=== PATIENT | female | born 1980 | race Caucasian/White ===

== ENCOUNTER → 2016-04-03 | Outpatient (CLI) | payer OTHER | LOC: LAB 16:32 | PROVIDERS: ATTEND Family Medicine | DX: O20.0 Threatened abortion (principal) | CPT/HCPCS: 36415; 84702 ==

== ENCOUNTER → 2016-04-05 | Outpatient (CLI) | payer OTHER | LOC: LAB 16:23 | PROVIDERS: ATTEND Family Medicine | DX: O26.851 Spotting complicating pregnancy, first trimester (principal); Z32.01 Encounter for pregnancy test, result positive | CPT/HCPCS: 36415; 84702 ==

== ENCOUNTER → 2016-04-10 | Outpatient (CLI) | payer OTHER ==
--- NOTE | 2016-04-10 21:45 | DI ---
OBSTETRICAL ULTRASOUND, 04/10/2016 3:46 PM: Clinical History: Verify dates. Previous Exam: None at this facility for this . LMP: 02/18/2016. There is a single live IUP currently in unstable position. Amnionic fluid content is normal. The plac enta is indeterminant location. heart rate is 160 beats/minute and regular. The yolk sac is vis ualized and both ovaries are normal. CRL measurement is 14 mm. This measurement corresponds to an EGA value of 7 weeks 5 days. The US EDC is 11/22/2016. EDC by LMP is 11/24/2016. Readin. Single live fetus with unstable presentation and normal amniotic fluid content. 2. The composite EGA is 7 weeks 5 days with an ultrasound EDC of 11/22/2016.
== END ==
LOC: US 15:44
PROVIDERS: ATTEND Family Medicine
DX: Z36 Encounter for antenatal screening of mother (principal)
CPT/HCPCS: 76801

== ENCOUNTER → 2016-04-17 | Outpatient (CLI) | payer OTHER ==
[2016-04-17 15:10] LABS: BASOPHILS # (AUTO) 0.01 10*3/UL; BASOPHILS % (AUTO) 0.2 % (0-1); EOSINOPHILS % (AUTO) 1.6 % (0-8); HEMATOCRIT 41.2 % (37.0-47.0); HEMOGLOBIN 14.1 g/dL (12.0-16.0); IMM GRAN % (AUTO) 0.2 % (0-5); IMM GRAN# (AUTO) 0.01 10*3/UL; LYMPHOCYTES # (AUTO) 1.39 10*3/uL; LYMPHOCYTES % (AUTO) 25.4 % (10-50); MEAN CORPUSCULAR HEMOGLOBIN 27.9 PG (27-31); MEAN CORPUSCULAR HGB CONC 34.2 g/dL (33-37); MEAN PLATELET VOLUME 8.5 FL (7.4-12.2); MONOCYTES # (AUTO) 0.53 10*3/UL (0.3-0.8); MONOCYTES % (AUTO) 9.7 % (5-15); NEUTROPHILS # (AUTO) 3.44 10*3/UL; NEUTROPHILS % (AUTO) 62.9 % (50-80); RDW COEFFICIENT OF VARIATION 13.4 % (11.5-14.5); RED BLOOD COUNT 5.06 10^6/uL (4.20-5.40); WHITE BLOOD COUNT 5.47 10^3/uL (4.8-10.8)
[2016-04-17 15:11] LABS: PLATELET MORPHOLOGY COMMENT NORMAL MORPHOLOGY (NORM)
[2016-04-17 15:12] LABS: PRENATAL QUESTION YES (Y)
[2016-04-17 15:44] LABS: HIV ANTIBODY NEGATIVE (N); HIV-1 P24 ANTIGEN NEGATIVE (N)
[2016-04-19 11:28] LABS: RUBELLA IGG INDEX 2.2 (()); SYPHILIS IGG WITH REFLEX Negative (Negative)
[2016-04-19 11:29] LABS: HEP B SURFACE AG Negative (Negative)
== END ==
LOC: MOB LAB 13:21
PROVIDERS: ATTEND Family Medicine
DX: Z36 Encounter for antenatal screening of mother (principal); Z3A.08 8 weeks gestation of pregnancy
CPT/HCPCS: 36415; 80081; 86900; 86901; 87088

== ENCOUNTER 2016-05-01 11:02 | Emergency (ER) | payer OTHER ==
[2016-05-01 11:29] VITALS: RESP 14; TEMP 97.6
--- NOTE | 2016-05-01 14:02 | DI ---
US OB LESS THAN 14 WEEKS,05/01/2016 12:27 PM: Clinical History: Vaginal spotting and low hCG. Previous Exam: April 10, 2016 Findings: Transabdominal grayscale and color Doppler sonographic images are obtained through the pelvis demonst rating a single pole within the uterus measuring a crown-rump length of 21 mm corresponding wit h an estimated gestational age of 8 weeks 6 days. (December 05, 2016. On the prior exam, the ed date of delivery was November 22, 2016 The urinary bladder is unremarkable. There is no detectable Doppler heart tones. Impression: 1. No detectable Doppler heart tones, and estimated gestational age measuring approximately 2 weeks l ess than the estimated gestational age by last menstrual period. This is most consistent with d emise.
--- NOTE | 2016-05-01 15:48 | PDOC ---
Female Problem HPI - General Chief Complaint: Vag Complaint/Bleed, <20WK IUP Stated Complaint: SPOTTING IN PREGANCY Date Seen by Provider: 05/01/16 Time Seen by Provider: 11:15 Source: POSITIVE: Patient, Old records Exam Limitations: POSITIVE: No limitations Nurse's Notes Reviewed & Considered: Yes - History of Present Illness Initial Comments: The patient is a 35-year-old female. She states she is 10 weeks , approximately. She is 1 para 0 aborta 0. She states that yesterday afternoon she developed a "brownish" vaginal discharge and has since developed some "bright red spotting". She states she had a similar episode when she was approximately 6 weeks . Mild cramping. She had an ultrasound done on 04/10/2016 which showed a heart rate of 160 bpm and her estimated gestational age was 7 weeks 5 days, for an EDC of 11/22/2016. Quantitative beta hCG on 04/03/2016 was 24,172. Quantitative hCG on 04/05/2016 was 26,130. Patient's blood type is B+. Patient has no abdominal pain. Body Location Affected: REPORTS: Genitalia (Vaginal spotting; approximately 10 weeks ) Timing: REPORTS: Abrupt Duration: <24 hours Severity: Mild Quality: REPORTS: Cramping Context: REPORTS: Known Location of Pain: REPORTS: Pelvic Cramping Vaginal Bleeding: REPORTS: Abnormal Bleeding, Spotting : 1 Para: 0 Abortions (Spontaneous/Intentional): 0 : REPORTS: , Ultrasound Sexual History: REPORTS: Active Urinary Symptoms: DENIES: Blood in Urine, Frequent Urination, Discomfort w/ Urination, Burning w/ Urination, Urinary Urgency, Painful Urination, Other Discharge: REPORTS: Other (Bloody vaginal spotting) Similar Symptoms Previously: Yes (at approximately 6 weeks gestation) Recent Care Received: REPORTS: Recently Seen, Treated by MD (As above) Any Prior Injuries Related to Current Complaint?: No - Patient Home Medications Home Medications: Home Medications [id number]/FA/Omega3/Dha/Fish Oil [ Gummies] 2 each PO DAILY tab 04/17/16 L.acidoph & Paracasei,B.lactis [Probiotic] 1 cap PO DAILY 05/01/16 - Patient Allergies Allergies/Adverse Reactions: Allergies Allergy/AdvReac Type Severity Reaction Status Date / Time clarithromycin AdvReac Intermediate Rash Verified 05/01/16 11:16 Past Medical History - heen HEENT History: Denies History Cardiovascular History: Denies History Respiratory History: Denies History Gastrointestinal History: Denies History Genitourinary History: Denies History Endocrine History: Denies History Musculoskeletal History: Denies History Prosthesis or Implant: No Neurological History: Migraines Blood Disorders: Denies History Psychiatric History: Denies History LMP: 02/22/16 Obstetrical History: Denies History Additional Obstetrical History: first : 1 Para: 0 Cancer History: Denies History In Past Year Been Physically Harmed or Verbally Threatened: No History of MDRO: No Tobacco Use: Current Every Day Smoker Alcohol Use: None Substance Use Type: None Previous Surgical History: No Significant Family History: No pertinent family hx Past Medical History Reviewed: Reviewed - No Changes ROS - Limitations ROS Limitations: No Limitations Constitution: REPORTS: Denies Symptoms Cardiovascular: REPORTS: Denies Cardiac Symptoms Respiratory: REPORTS: Denies Resp Symptoms Neurological: REPORTS: Denies Neuro Symptoms Gastrointestinal: REPORTS: Denies GI Symptoms Endocrine: REPORTS: Denies Symptoms Musculoskeletal: REPORTS: Denies MS Symptoms Genitourinary: REPORTS: Other (Vaginal spotting; 10 weeks ) Eyes: REPORTS: Denies Symptoms ENT: REPORTS: Denies Symptoms Skin: REPORTS: Denies Skin Symptoms Lympathic: REPORTS: Denies Lympathic Symptoms Immunologic: POSITIVE: Denies Symptoms Psychiatric: POSITIVE: Denies Psych Symptoms Female Genitourinary Exam - General Appearance General Appearance: POSITIVE: Alert, Cooperative, No Acute Distress, No Evidence of Trauma - HEENT HEENT: POSITIVE: Head Inspection Nml, Eyes Inspection Nml, Ears Inspection Nml, Nose Inspection Nml, Oral/Dental Inspect. Nml, Pharynx Inspect. Nml, PERRL, EOMI - Neck Neck: POSITIVE: Normal Inspection, No Apparent Injury - Respiratory Respiratory: POSITIVE: No Respiratory Distress, Breath Sounds Normal, Chest Non- Tender - Cardiovascular Cardiovascular: POSITIVE: Regular Rate and Rhythm, Heart Sounds Normal, Equal Pulses, Strong Pulses Peripheral Pulses: Radial (R): 2+, Radial (L): 2+ - Abdomen Abdomen: POSITIVE: Soft, Normal Bowel Sounds, Non-Tender, No Distention, No Organomegaly - Back Back: POSITIVE: Normal Inspection - Genital / Rectal Pelvic Exam: POSITIVE: Cervix (Omari close; scant amount of bright red blood from cervical os), Vagina (Normal), Uterus (Nontender; slightly enlarged), Adnexa (Probably normal with no adnexal masses), External Exam Normal, Bimanual Exam Normal, Vaginal Discharge (Scant amount of bright red vaginal bleeding from cervical os), Vaginal Bleeding (Scant amount of bright red bleeding from cervical os), Blood In Vaginal Vault, Enlarged Uterus (Slightly). NEGATIVE: Speculum Exam Normal (Scant amount of bright red bleeding from cervical os; external os closed), Clots in vaginal Vault, Cervicitis, Tissue Present in Cervix, Tissue Present in Vagina, Cervical Motion Tender, Cervical Dilation, Adnexal Mass, Tender Uterus, Perineal Hematoma, Enlrgd Consistent w/Dates - Skin Skin: POSITIVE: Intact, Normal For Race, Warm, Dry, No Rash - Extremities Extremity: Non-Tender: (All Extremities), Normal ROM: (All Extremities), Normal Inspection: (All Extremities) - Neurological / Psychological Neurological: POSITIVE: Oriented X3, counter cutter Normal As Tested, Motor Normal, Sensation Normal, 5, 6 Female Genitourinary Progress - Results Reviewed by me Xrays/CTs/US Reviewed by me: Yes Discussed with Radiologist: Yes Radiology Findings: OBSTETRICAL ultrasound discussed with the histopathology technician. No heart activity appreciated ultrasound graphically. Small for dates at about 6.5 weeks. Lab Results Reviewed: Yes (quantitative beta hCG 1164.7) Lab Results:: Laboratory Results 05/01/16 Range/Units 11:47 HCG, Quant 1164.7 mIU/ML - Patient's Progress Pain Medication Addressed: POSITIVE: Yes (Advised Tylenol) School/Work Release Addressed: POSITIVE: Yes Re-Examine Time: 13:35 Re-Examine Comment: Patient advised of diagnosis of probable demise. Advised that spontaneous miscarriage is likely course. Patient to follow up with her primary care provider. Return here anytime if we can be of any further service whatsoever. Status: POSITIVE: Unchanged, Re-Examined Rhogam Given: No (blood type B positive) - Consult Counseled: POSITIVE: Patient, Family (Fiance), RE: Lab Results, RE: Radiology Results, RE: DX, RE: Need for F/U Patient Care Time - Estimated PCT Patient Care Time (In Minutes): 45 Vital Signs - Recent Vital Signs Vital Signs: Vital Signs (Last 8 hours) Temp Pulse Resp BP Pulse Ox 05/01/16 11:03 97.6 F 86 14 142/97 98 - VS Reviewed Vital Signs Reviewed: Yes Discharge Clinical Impression: demise Discharge Disposition: Discharged to Home Condition: Stable Patient Instructions Given at Discharge: Miscarriage (ED) Additional Instructions: Ultrasound today shows no heart rate and the fetus is diminished in size since your last ultrasound. Quantitative beta-hCG, which is a measure of the the progress of your has shown a decline from her last fingers. These findings are all compatible with demise and I believe he will lose the and have a miscarriage. Avoid all intercourse until that happens. Follow-up with your primary care provider, who is taking care of your . Return here anytime if condition worsens in any way. Follow Up With: ANTELMO BAHENA [Primary Care Provider] - (Instructions as above. 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 Return here as necessary.)
== END 2016-05-01 13:49 | disposition home or self-care (01) ==
LOC: ER 11:02
DX: O03.4 Incomplete spontaneous abortion without complication (principal)
CPT/HCPCS: 36415; 76801; 84702; 99283

== ENCOUNTER → 2016-05-16 | Outpatient (CLI) | payer OTHER | LOC: MOB LAB 16:12 | PROVIDERS: ATTEND Family Medicine | DX: O03.9 Complete or unspecified spontaneous abortion without complication (principal); N89.8 Other specified noninflammatory disorders of vagina | CPT/HCPCS: 36415; 84702; 87480; 87510; 87660 ==

== ENCOUNTER 2016-05-18 09:15 | Day surgery (SDC) | payer OTHER ==
[2016-05-18] MEDS: Sodium Chloride 0.9% 1,000 ML PRIMARY IV ONE ×2 (09:30→10:05)
--- NOTE | 2016-05-18 09:30 | PDOC ---
Female Problem HPI - General Chief Complaint: Vag Complaint/Bleed, <20WK IUP Stated Complaint: VAGINAL BLEEDING/ NEAR SYNCOPE Date Seen by Provider: 05/18/16 Time Seen by Provider: 09:30 Source: POSITIVE: Patient, Spouse Exam Limitations: POSITIVE: No limitations Nurse's Notes Reviewed & Considered: Yes - History of Present Illness Initial Comments: Patient developed acute vaginal bleeding this morning at approximately 03 100 passing large clots and a large amount of blood. Is having abdominal cramping. She denies any fever or chills but does have sweats. She is having episodes of dizziness and near syncope. She does have nausea but no vomiting no diarrhea. Body Location Affected: REPORTS: Abdomen Timing: REPORTS: Abrupt Duration: 4-6 hours Severity: Severe Quality: REPORTS: Cramping Context: REPORTS: Recent Miscarriage Location of Pain: REPORTS: Pelvic Cramping, Pelvic Pressure Vaginal Bleeding: REPORTS: Abnormal Bleeding, More Severe Than Periods, Passing Clots, Passing Tissue : 1 Para: 0 Abortions (Spontaneous/Intentional): 1 Sexual History: REPORTS: Active Discharge: REPORTS: Vaginal Discharge (blood and clots) Recent Care Received: REPORTS: Recently Seen Any Prior Injuries Related to Current Complaint?: Yes (spontanious ab) - Patient Home Medications Home Medications: Home Medications [id number]/FA/Omega3/Dha/Fish Oil [ Gummies] 2 each PO DAILY tab 04/17/16 L.acidoph & Paracasei,B.lactis [Probiotic] 1 cap PO DAILY 05/01/16 - Patient Allergies Allergies/Adverse Reactions: Allergies Allergy/AdvReac Type Severity Reaction Status Date / Time clarithromycin AdvReac Intermediate Rash Verified 05/18/16 09:49 Past Medical History - heen HEENT History: Denies History Cardiovascular History: Denies History Respiratory History: Denies History Gastrointestinal History: Denies History Genitourinary History: Denies History Endocrine History: Denies History Musculoskeletal History: Denies History Prosthesis or Implant: No Neurological History: Migraines Blood Disorders: Denies History Psychiatric History: Denies History Cancer History: Denies History History of MDRO: No Alcohol Use: None Substance Use Type: None Previous Surgical History: No Significant Family History: No pertinent family hx ROS - Limitations ROS Limitations: No Limitations Constitution: REPORTS: Denies Symptoms Cardiovascular: REPORTS: Denies Cardiac Symptoms Respiratory: REPORTS: Shortness Of Breath Neurological: REPORTS: Dizziness, Fainting Gastrointestinal: REPORTS: Nausea Endocrine: REPORTS: Denies Symptoms Musculoskeletal: REPORTS: Denies MS Symptoms Genitourinary: REPORTS: Other (Heavy vaginal bleeding) Eyes: REPORTS: Denies Symptoms ENT: REPORTS: Denies Symptoms Skin: REPORTS: Diaphoresis Lympathic: REPORTS: Denies Lympathic Symptoms Immunologic: POSITIVE: Denies Symptoms Psychiatric: POSITIVE: Denies Psych Symptoms Female Genitourinary Exam - General Appearance General Appearance: POSITIVE: Alert, Cooperative, No Acute Distress, No Evidence of Trauma - HEENT HEENT: POSITIVE: Head Inspection Nml, Eyes Inspection Nml, Ears Inspection Nml, Nose Inspection Nml, PERRL, EOMI - Neck Neck: POSITIVE: Normal Inspection, No Apparent Injury - Respiratory Respiratory: POSITIVE: No Respiratory Distress, Breath Sounds Normal, Chest Non- Tender - Cardiovascular Cardiovascular: POSITIVE: Regular Rate and Rhythm, Heart Sounds Normal, Equal Pulses Peripheral Pulses: Radial (R): 2+, Radial (L): 2+ - Abdomen Abdomen: POSITIVE: Soft, Normal Bowel Sounds, Non-Tender, No Distention, No Organomegaly - Back Back: POSITIVE: Normal Inspection - Genital / Rectal Pelvic Exam: POSITIVE: Cervix (Open cervix, tissue in the cervix with bloody exudate.), Vaginal Discharge, Vaginal Bleeding, Blood In Vaginal Vault, Tissue Present in Cervix - Skin Skin: POSITIVE: Intact, Normal For Race, Warm, Dry, No Rash - Extremities Extremity: Non-Tender: (All Extremities), Normal ROM: (All Extremities), Normal Inspection: (All Extremities) - Neurological / Psychological Neurological: POSITIVE: Affect Apporpriate, Oriented X3, herbicide sprayer Normal As Tested, Motor Normal, Sensation Normal Female Genitourinary Progress - Results Reviewed by me Xrays/CTs/US Reviewed by me: Yes Discussed with Radiologist: Yes Lab Results Reviewed: Yes Lab Results:: Laboratory Results 05/18/16 Range/Units 09:46 WBC 12.72 H (4.8-10.8) 10^3/uL RBC 3.85 L (4.20-5.40) 10^6/uL Hgb 10.6 L (12.0-16.0) g/dL Hct 32.3 L (37.0-47.0) % MCV 83.9 (81-99) FL MCH 27.5 (27-31) PG MCHC 32.8 L (33-37) g/dL RDW Std Deviation 40.7 (39-50) fL RDW Coeff of Tyler 13.5 (11.5-14.5) % Plt Count 302 (140-350) 10*3/uL MPV 8.7 (7.4-12.2) FL Immature Gran % (Auto) 0.3 (0-5) % Neut % (Auto) 84.6 H (50-80) % Lymph % (Auto) 9.4 L (10-50) % Nolan % (Auto) 4.8 L (5-15) % Eos % (Auto) 0.7 (0-8) % Baso % (Auto) 0.2 (0-1) % Immature Gran # (Auto) 0.04 10*3/UL Neut # (Auto) 10.77 10*3/UL Lymph # (Auto) 1.19 10*3/uL Nolan # (Auto) 0.61 (0.3-0.8) 10*3/UL Eos # (Auto) 0.09 10*3/UL Baso # (Auto) 0.02 10*3/UL WBC Morphology Comment Normal morphology (NORM) Plt Morphology Comment Normal morphology (NORM) RBC Morph Comment Normal morphology (NORM) Sodium 138 (135-145) meq/L Potassium 3.8 (3.8-5.2) meq/L Chloride 105 (98-112) meq/L Carbon Dioxide 23 (23-33) meq/L Anion Gap 10 (5-20) BUN 15 (7-22) mg/dL Creatinine 0.7 (0.50-1.20) mg/dL Estimated GFR > 60 (>60 ml/min/1.73m(2)) BUN/Creatinine Ratio 21.42 H (6-20) Glucose 117 H (78-110) mg/dL Calculated Osmolality 287.0 (267-292) mOsm/kg Calcium 8.5 L (8.7-10.7) mg/dL Magnesium 1.6 (1.6-2.4) mg/dL Total Bilirubin 0.4 (0.3-1.2) mg/dL AST 19 (8-39) IU/L ALT 29 (9-52) IU/L Alkaline Phosphatase 51 (38-126) IU/L Total Protein 7.0 (6.1-8.0) g/dL Albumin 4.0 (3.5-4.8) g/dL Globulin 2.9 (2.50-4.10) g/dL Albumin/Globulin Ratio 1.30 (1.3-2.0) mg/g HCG, Quant 20.75 mIU/ML - Patient's Progress Pain Medication Addressed: POSITIVE: Yes Re-Examine Time: 12:44 Status: POSITIVE: Unchanged, Improved - Consult Consult (If Yes, Name of Consulting MD & Time Called): Yes (Dr. Quintero [id number]) Consulting MD will see pt:: POSITIVE: [facility] Admit Counseled: POSITIVE: Patient, Family, RE: Lab Results, RE: Radiology Results, RE : DX Patient Care Time - Estimated PCT Patient Care Time (In Minutes): 45 Vital Signs - Recent Vital Signs Vital Signs: Vital Signs (Last 8 hours) Temp Resp Pulse Ox 05/18/16 09:27 96.9 F 16 94 - VS Reviewed Vital Signs Reviewed: Yes Discharge Clinical Impression: Retained products of conception Discharge Disposition: Admit to Inpatient Condition: Stable Date Decision to Admit to Inpatient: 05/18/16 Time Decision to Admit to Inpatient: 12:46
[2016-05-18 09:49] LABS: BASOPHILS # (AUTO) 0.02 10*3/UL; BASOPHILS % (AUTO) 0.2 % (0-1); EOSINOPHILS % (AUTO) 0.7 % (0-8); HEMATOCRIT 32.3 % (37.0-47.0); HEMOGLOBIN 10.6 g/dL (12.0-16.0); IMM GRAN % (AUTO) 0.3 % (0-5); IMM GRAN# (AUTO) 0.04 10*3/UL; LYMPHOCYTES # (AUTO) 1.19 10*3/uL; LYMPHOCYTES % (AUTO) 9.4 % (10-50); MEAN CORPUSCULAR HEMOGLOBIN 27.5 PG (27-31); MEAN CORPUSCULAR HGB CONC 32.8 g/dL (33-37); MEAN PLATELET VOLUME 8.7 FL (7.4-12.2); MONOCYTES # (AUTO) 0.61 10*3/UL (0.3-0.8); MONOCYTES % (AUTO) 4.8 % (5-15); NEUTROPHILS # (AUTO) 10.77 10*3/UL; NEUTROPHILS % (AUTO) 84.6 % (50-80); RDW COEFFICIENT OF VARIATION 13.5 % (11.5-14.5); RED BLOOD COUNT 3.85 10^6/uL (4.20-5.40); WHITE BLOOD COUNT 12.72 10^3/uL (4.8-10.8)
[2016-05-18 09:50] LABS: PLATELET MORPHOLOGY COMMENT NORMAL MORPHOLOGY (NORM)
[2016-05-18 09:57] LABS: ASPARTATE AMINO TRANSFERASE 19 IU/L (8-39); BILIRUBIN,TOTAL 0.4 mg/dL (0.3-1.2); BLOOD UREA NITROGEN 15 mg/dL (7-22); BUN/CREATININE RATIO 21.42 (6-20); CALCIUM 8.5 mg/dL (8.7-10.7); CHLORIDE 105 meq/L (98-112); CREATININE 0.7 mg/dL (0.50-1.20); EST GLOMERULAR FILTRATION > 60 (>60 ml/min/1.73m(2)); GLUCOSE 117 mg/dL (78-110); MAGNESIUM 1.6 mg/dL (1.6-2.4); POTASSIUM 3.8 meq/L (3.8-5.2); SODIUM 138 meq/L (135-145)
[2016-05-18] MEDS: MORPHINE SULFATE 4 MG/1 ML IVP ONE ×2 (10:03→10:08)
[2016-05-18] MEDS ORDERED: Methylergonovine Tab 0.2 MG TAB PO ONE ×2 (12:38→16:20)
[2016-05-18] MEDS ORDERED: cefTRIAXone Inj 2 GM in Sodium Chloride 0.9% 100 ML IV ONE (12:38)
[2016-05-18 14:11] LABS: BASOPHILS # (AUTO) 0.01 10*3/UL; BASOPHILS % (AUTO) 0.1 % (0-1); EOSINOPHILS % (AUTO) 0.2 % (0-8); HEMATOCRIT 26.2 % (37.0-47.0); HEMOGLOBIN 8.5 g/dL (12.0-16.0); IMM GRAN % (AUTO) 0.2 % (0-5); IMM GRAN# (AUTO) 0.02 10*3/UL; LYMPHOCYTES # (AUTO) 1.28 10*3/uL; LYMPHOCYTES % (AUTO) 13.4 % (10-50); MEAN CORPUSCULAR HEMOGLOBIN 27.5 PG (27-31); MEAN CORPUSCULAR HGB CONC 32.4 g/dL (33-37); MEAN PLATELET VOLUME 8.7 FL (7.4-12.2); MONOCYTES # (AUTO) 0.45 10*3/UL (0.3-0.8); MONOCYTES % (AUTO) 4.7 % (5-15); NEUTROPHILS # (AUTO) 7.78 10*3/UL; NEUTROPHILS % (AUTO) 81.4 % (50-80); RDW COEFFICIENT OF VARIATION 13.6 % (11.5-14.5); RED BLOOD COUNT 3.09 10^6/uL (4.20-5.40); WHITE BLOOD COUNT 9.56 10^3/uL (4.8-10.8)
[2016-05-18 14:13] LABS: PLATELET MORPHOLOGY COMMENT NORMAL MORPHOLOGY (NORM)
[2016-05-18] MEDS ORDERED: SUCCINYLCHOLINE CHLORIDE 20 MG/1 ML - 10 ML ONE (14:55)
[2016-05-18] MEDS ORDERED: fentaNYL Inj 100 MCG/2 ML VIAL ONE (14:56)
[2016-05-18] MEDS ORDERED: KETAMINE 100 MG/1 ML - 5 ML ONE (14:56)
[2016-05-18] MEDS ORDERED: MIDAZOLAM 5 MG/1 ML ONE (14:56)
[2016-05-18] MEDS ORDERED: Sodium Chloride 0.9% 100 ML IV ONE (15:01)
[2016-05-18] MEDS ORDERED: Methylergonovine Tab 0.2 MG TAB PO SCH (15:30)
[2016-05-18] MEDS ORDERED: NORMAL SALINE 10 ML SYRINGE FLUSH IVP PRN (15:30)
[2016-05-18] MEDS ORDERED: HYDROcodone-APAP 5 MG -325 MG TABLET PO PRN (15:30)
[2016-05-18] MEDS ORDERED: IBUPROFEN 800 MG TABLET PO PRN (15:30)
[2016-05-18] MEDS ORDERED: KETOROLAC 30 MG/1 ML VIAL ONE (15:32)
--- NOTE | 2016-05-18 15:41 | OB.OP.NOTE ---
Operative Report Surgeon: [place] Anesthesia Type: General Anesthesia Provider: Jyoti Shabazz CRNA Surgery Date: 05/18/16 Preoperative Diagnosis: Incomplete AB Postoperative Diagnosis: Same Procedure: Suction D&C Estimated Blood Loss (mL): 100 Fluids: 1300 ml Complications: None Findings at Surgery: 10 cm anteverted uterus. Copious POC. Indications for the Procedure: Incomplete AB after PO cytotec. Approx. 7 week CRL with no FCA. US shows probable retained POC today. Description of Procedure: The patient was taken to the operating room and placed supine where general laryngeal mask anesthesia was administered. She was then placed in lithotomy position in [facility]. She was prepped and draped in the normal sterile fashion and her bladder was emptied of urine with a straight catheter. A weighted speculum was placed in the vagina and the anterior lip of the cervix was grasped with a single-tooth tenaculum. The uterus was sounded to a depth of 10 cm. The cervix was then dilated with Sky dilators to #30. A 9 mm curved suction curette was introduced to the fundus and vacuum was applied. Several passages of suction curettage were then made with return of copious product of conception. Sharp curettage was then performed with the feeling of persistent products of conception on the posterior aspect of the uterus. Additional suction curettage resulted in removal of this material. Good cry was then noted in all 4 quadrants with sharp curettage. A final passage of suction curettage returned no further products of conception or blood. The tenaculum was then removed from the cervix and good hemostasis was noted. The speculum was removed from the vagina. There were complications at surgery and the patient left to recovery in good condition. Plan: Routine post op care and discharge to home.
[2016-05-18] MEDS ORDERED: HYDROcodone-APAP 5 MG -325 MG TABLET PO ONE (16:13)
--- NOTE | 2016-05-18 17:07 | DI ---
PELVIC ULTRASOUND, 05/18/2016 9:28 AM Clinical History: Heavy vaginal bleeding. Retained products of conception. Previous Exam: None at this facility. Technique: Transabdominal and transvaginal scans are performed. The uterus measures approximately 45 x 60 x 9 mm. There is a large collection of fluid in the cervica l canal corresponding to 0.5-1.0 mL. Within the uterine cavity there are areas of mild hyperechogenic ity and also hypoechogenicity. These findings are highly suspicious for retained products of concepti on. The right ovary is normal. There is a 35 mm cyst of the left ovary. There are no fluid collection s or masses. Readin. There is material of mixed hyper and hypoechogenicity within the central uterine canal and there is fluid in the cervical canal. These findings are highly suspicious for retained products of concept ion. 2. There is a 35 mm cyst of the left ovary. The right ovary is normal.
[2016-05-18 17:40] VITALS: TEMP 98.2
[2016-05-18] MEDS ORDERED: Sodium Chloride 0.9% 1,000 ML ONE (17:43)
[2016-05-18 17:45] VITALS: RESP 12
== END 2016-05-18 17:00 | disposition home or self-care (01) ==
LOC: ER 09:15 → SDSC 13:44
PROVIDERS: ATTEND Family Medicine
DX: O03.4 Incomplete spontaneous abortion without complication (principal)
CPT/HCPCS: 59812; 76830; 76856; 80053; 83735; 84702; 85025; 86900; 86901; 96360; 96361; 99283 ×2; J0694; J1885; J2704; J3010; J0330; J2250; J2270; J7030; J7050

== ENCOUNTER → 2016-08-17 | Outpatient (CLI) | payer OTHER | LOC: MOB LAB 16:48 | PROVIDERS: ATTEND Nurse Practitioner Family | DX: N89.8 Other specified noninflammatory disorders of vagina (principal) | CPT/HCPCS: 87480; 87510; 87660 ==

== ENCOUNTER → 2016-08-24 | Outpatient (CLI) | payer OTHER | LOC: LAB 18:32 | PROVIDERS: ATTEND Family Medicine | DX: O20.0 Threatened abortion (principal) | CPT/HCPCS: 36415; 84702 ==

== ENCOUNTER → 2016-08-26 | Outpatient (CLI) | payer OTHER | LOC: LAB 18:22 | PROVIDERS: ATTEND Family Medicine | DX: O20.0 Threatened abortion (principal) | CPT/HCPCS: 36415; 84702 ==

== ENCOUNTER → 2016-09-11 | Outpatient (CLI) | payer OTHER ==
[2016-09-11 12:38] LABS: BASOPHILS # (AUTO) 0.02 10*3/UL; BASOPHILS % (AUTO) 0.3 % (0-1); EOSINOPHILS # (AUTO) 0.15 10*3/UL; EOSINOPHILS % (AUTO) 2.4 % (0-8); HEMOGLOBIN 14.3 g/dL (12.0-16.0); LYMPHOCYTES # (AUTO) 1.13 10*3/uL; MEAN CORPUSCULAR HEMOGLOBIN 26.1 PG (27-31); MEAN CORPUSCULAR HGB CONC 33.3 g/dL (33-37); MEAN CORPUSCULAR VOLUME 78.5 FL (81-99); MEAN PLATELET VOLUME 9.2 FL (7.4-12.2); MONOCYTES # (AUTO) 0.82 10*3/UL (0.3-0.8); MONOCYTES % (AUTO) 13.3 % (5-15); NEUTROPHILS # (AUTO) 4.02 10*3/UL; NEUTROPHILS % (AUTO) 65.4 % (50-80); RED BLOOD COUNT 5.48 10^6/uL (4.20-5.40)
[2016-09-11 12:44] LABS: PLATELET MORPHOLOGY COMMENT NORMAL MORPHOLOGY (NORM); RBC MORPHOLOGY COMMENT NORMAL MORPHOLOGY (NORM); WBC MORPHOLOGY COMMENT NORMAL MORPHOLOGY (NORM)
[2016-09-11 12:57] LABS: HIV ANTIBODY NEGATIVE (N); HIV-1 P24 ANTIGEN NEGATIVE (N)
== END ==
LOC: MOB LAB 10:29
PROVIDERS: ATTEND Family Medicine
DX: Z36 Encounter for antenatal screening of mother (principal)
CPT/HCPCS: 36415; 80081; 86900; 86901; 87088

== ENCOUNTER → 2016-10-04 | Outpatient (CLI) | payer OTHER ==
--- NOTE | 2016-10-05 09:00 | DI ---
US OB , LIMITED,10/04/2016 3:08 PM: Clinical History: Spotting during first trimester. Previous Exam: May 18, 2016 Findings: Multiple grayscale and color Doppler sonographic images are obtained through the pelvis demonstrating a single live intrauterine gestation. A single pole is noted measuring 57 mm from crown to rump and corresponding with an estimated g estational age of 12 weeks 2 days. Detected Doppler heart tones measure 150 acute compartment. The right ovary is within normal limits. The left ovary is also within normal limits. Both contain normal Doppler flow. Impression: Single live intrauterine gestation with size equal to dates.
== END ==
LOC: US 15:04
PROVIDERS: ATTEND Family Medicine
DX: O26.851 Spotting complicating pregnancy, first trimester (principal)
CPT/HCPCS: 76815

== ENCOUNTER → 2016-10-10 | Outpatient (CLI) | payer OTHER | LOC: MOB LAB 16:43 | PROVIDERS: ATTEND Family Medicine | DX: Z36 Encounter for antenatal screening of mother (principal); Z3A.12 12 weeks gestation of pregnancy | CPT/HCPCS: 87491; 87591 ==

== ENCOUNTER → 2016-10-10 | Outpatient (CLI) | payer OTHER | LOC: LAB 17:46 | PROVIDERS: ATTEND Family Medicine | DX: O26.891 Other specified pregnancy related conditions, first trimester (principal); N89.8 Other specified noninflammatory disorders of vagina; Z3A.12 12 weeks gestation of pregnancy | CPT/HCPCS: 87480; 87510; 87660 ==

== ENCOUNTER 2017-04-02 02:25 | Inpatient (IN) ==
[2017-04-02] MEDS ORDERED: CefOXitin Inj 2 GM in Sodium Chloride 0.9% 100 ML IV ONE (02:59)
[2017-04-02] MEDS ORDERED: CITRIC ACID/SODIUM CITRATE 30 ML CUP PO ONE (02:59)
[2017-04-02] MEDS ORDERED: LIDOCAINE W/ SODIUM BICARB 0.5 ML SYR SUBD PRN (02:59)
[2017-04-02] MEDS ORDERED: Metoclopramide Inj 10 MG/2 ML VIAL IV ONE (02:59)
[2017-04-02] MEDS ORDERED: Lactated Ringers 1,000 ML PRIMARY IV ONE ×4 (02:59→05:10)
[2017-04-02] MEDS ORDERED: LIDOCAINE HCL 2 % 10 ML JELLY URO-JECT TOPICAL PRN (02:59)
[2017-04-02] MEDS ORDERED: NORMAL SALINE 10 ML SYRINGE FLUSH IVP PRN ×2 (02:59→05:49)
[2017-04-02] MEDS ORDERED: Famotidine Inj 20 MG in Normal Saline Flush 10 ML IVP ONE (02:59)
[2017-04-02] MEDS ORDERED: Oxytocin 20 Units + LR 20 UNIT/1,000 ML BAG IV SCH ×2 (03:00→06:28)
[2017-04-02] MEDS ORDERED: Lactated Ringers 1,000 ML PRIMARY IV SCH (03:00)
[2017-04-02 03:17] LABS: Hematocrit [HCT] 38.1 % (37.0-47.0); Hemoglobin [HGB] 12.7 g/dL (12.0-16.0); MEAN CORPUSCULAR HGB CONC 33.3 g/dL (33-37); MEAN CORPUSCULAR VOLUME 84.1 FL (81-99); MEAN PLATELET VOLUME 8.7 FL (7.4-12.2); RED BLOOD COUNT 4.53 10^6/uL (4.20-5.40)
[2017-04-02] MEDS ORDERED: ePHEDrine Inj 50 MG/ML AMP ONE (03:28)
[2017-04-02] MEDS ORDERED: fentaNYL Inj 100 MCG/2 ML VIAL ONE ×2 (03:38→05:37)
[2017-04-02] MEDS ORDERED: OXYTOCIN 10 UNIT/1 ML ONE (03:48)
[2017-04-02] MEDS ORDERED: AZITHROMYCIN 500 MG VIAL IV ONE (04:42)
[2017-04-02] MEDS ORDERED: ONDANSETRON 4 MG/2 ML VIAL ONE (04:46)
[2017-04-02] MEDS ORDERED: KETOROLAC 30 MG/1 ML VIAL ONE (05:37)
--- NOTE | 2017-04-02 05:48 | CRNA.PROGR ---
Anesthesia Recovery Phase I - Post Anesthesia Evaluation Patient's Condition on Arrival in Phase I: Stable Pain Level: 2
--- NOTE | 2017-04-02 05:48 | CRNA.PROGR ---
Anesthesia Time - - Start date: 04/02/17 End date: 04/02/17 - Procedure/Recovery Time Anesthesia : Time In: 03:49 Anesthesia : Time Out: 05:38 Anesthesia : Total Time: 109 - Total Anesthesia Time Total Anesthesia Time (minutes): 109 - Other Weight: 101.514 kg Height: 5 ft 4 in Body Mass Index (BMI): 38.4 Physical Status: P2 Anesthesia Type: Spinal Block (C section for breech presentation)
[2017-04-02] MEDS ORDERED: ONDANSETRON 4 MG/2 ML VIAL IVP PRN ×2 (05:49→06:28)
[2017-04-02] MEDS ORDERED: fentaNYL Inj 100 MCG/2 ML VIAL IVP PRN (05:49)
[2017-04-02] MEDS ORDERED: HYDROmorphone 2 MG/1 ML IVP PRN (05:49)
--- NOTE | 2017-04-02 05:52 | CRNA.PROCE ---
Central Neuraxis Block Placemt - - Safety Measures: Time Out Taken, Site Verified - - Type of Block: Subarachnoid Reason for Block: Surgical Moniters Used During Block: EKG, SPO2, NIBP Positioning: Sitting Skin Prep Used: Betadine Draped: Yes Skin Infiltration - Enter Amount Used in Comment Field: 1% Xylocaine (mL): Yes ( wheal) Introducer User: 23 Gauge Spinal Needle Used: 25 Danyel 80 mm Local Anesthetic - Enter Amount Used in Comment Field: 0.75 % Bupivacaine with Dextrose (ml): Yes (15mg) Anesthesia Time - Other Weight: 101.514 kg Height: 5 ft 4 in Body Mass Index (BMI): 38.4
--- NOTE | 2017-04-02 06:05 | OB.OP.NOTE ---
Operative Report - - Surgeon: Amos Quintero MD Insole Buffer: Jonathon Hart MD Anesthesia Type: Regional Anesthesia Provider: Kimo Frances CRNA Surgery Date: 04/02/17 Preoperative Diagnosis: Breech presentation, active labor. Postoperative Diagnosis: same, delivered. Difficult delivery of the head necessitated a T-type incision in the uterus to the left of the midline ( placenta was anterior). Procedure: Primary low transverse section Complications: none Estimated Blood Loss (mL): 600 Urine Output (mL): 225 Fluids: 2500 cc LR Indications: Pt is a 36 yo G2 now P1 at 37 5/7 weeks, who has been breech for most of her . She presented to labor and delivery [facility] at home with clear fluid at 0130. She was 6 cm upon presentation. U/s confirmed breech presentation. Findings: female infant, junie breech presentation. Normal uterus, tubes and ovaries. Description of Procedure: The patient was taken to the operating room where spinal anesthesia was found to be adequate. She was then prepared and draped in the normal sterile fashion in the dorsal supine position with a leftward tilt. A Pfannenstiel skin incision was then made with the scalpel and carried through to the underlying layer of fascia with Bovie. The fascia was incised in the midline and the incision extended laterally with the Bovie. The superior aspect of the fascial incision was then grasped with Lela clamps, elevated and the underlying rectus muscles dissected off bluntly. Attention was then turned to the inferior aspect of this incision which in a similar fashion was grasped with Lela clamps and the rectus muscles dissected off both bluntly and with the Bovie. The rectus muscle was then in the midline, and the peritoneum identified, tented up, and entered in blunt fashion. The peritoneal incision was then extended superiorly and inferiorly with good visualization of the bladder. The Estiven retractor was then inserted and the vesicouterine peritoneum was identified. The lower uterine segment incised in the transverse fashion with the scalpel. The uterine incision was then extended laterally in a blunt fashion. The infant's breech was low in the pelvis and was delivered without issue. The uterus contracted down tightly, thus making delivery of the baby's head difficult. After several maneuvers to get the head to release, a T- incision was made superiorly from the uterine incision towards the left side of the uterus (taking care to avoid the placenta). This made it possible for the baby's head to deliver. The nose and mouth were suctioned with the bulb suction and the cord was clamped and cut. The infant was handed off to the awaiting nurse. Cord gases and cord blood were sent for analysis. The placenta was then removed manually; the uterus exteriorized, and cleared of all clots and debris. The uterine incision was repaired with 0 Vicryl in a running, locked fashion after noting that the right side of the incision had extended inferiorly and laterally. A second layer of the same suture was used to obtain excellent hemostasis. The T-incision was closed in 3 layers due to the thickness of the myometrium. The peritoneal cavity was then copiously irrigated with warm saline. The uterus was returned to the abdomen. The paracolic gutters were copiously irrigated with warm saline and a second look at the uterine incision continued to reveal excellent hemostasis. The peritoneum was closed with 3-0 Vicryl. The fascia reapproximated with 0 vicryl in a running fashion. The subcutaneous space was irrigated with copiously with warm saline and the closed first with 3-0 Vicryl Rapide and then more superficially with Insorb absorbable sutures. The skin was reapproximated with Steri-Strips and a Silverlon dressing applied. Fundal massage was completed with no clots in vaginal vault. The patient tolerated the procedure well. Sponge, lap, and needle counts were correct x2. Mefoxin was given preoperatively less than one hour prior to incision time. The patient was taken to the recovery room in stable condition. Because the pt had ruptured membranes for 2-3 hours prior to delivery, with + GBS and labor, she was given 500 mg of azithromycin in the OR.
[2017-04-02] MEDS ORDERED: Naloxone Inj 0.01 MG, Sodium Chloride 0.9% vial 1 ML IVP PRN ×2 (06:28)
[2017-04-02] MEDS ORDERED: diphenhydrAMINE 50 MG/1 ML VIAL IV PRN (06:28)
[2017-04-02] MEDS ORDERED: diphenhydrAMINE 25 MG CAPSULE PO PRN (06:28)
[2017-04-02] MEDS ORDERED: CALCIUM CARBONATE 500 MG (TUMS) CHEWABLE TABLET PO PRN (06:28)
[2017-04-02] MEDS ORDERED: HYDROmorphone 2 MG/1 ML IV PRN (06:28)
[2017-04-02] MEDS ORDERED: Nalbuphine Inj 20 MG/ML Ampule IVP PRN (06:28)
[2017-04-02] MEDS ORDERED: Famotidine Inj 20 MG in Normal Saline Flush 10 ML IVP PRN (06:28)
[2017-04-02] MEDS ORDERED: DIPH,PERTUSS,TET(ADACEL) VAC/PF 0.5 ML (Tdap) IM ONE (06:28)
[2017-04-02] MEDS ORDERED: LANOLIN HPA 40 GM TUBE TOPICAL PRN (06:28)
[2017-04-02] MEDS: oxyCODONE-ACETAMINOPHEN 5-325 TAB PO PRN ×4 (06:30→20:22)
[2017-04-02] MEDS ORDERED: oxyCODONE-ACETAMINOPHEN 5-325 TAB PO ONE (06:30)
[2017-04-02] MEDS: D5-LR 1,000 ML PRIMARY IV SCH ×2 (08:43→17:38)
[2017-04-02] MEDS: KETOROLAC 15 MG/1 ML VIAL IVP SCH ×3 (11:55→23:52)
[2017-04-02] MEDS: NORMAL SALINE 10 ML SYRINGE FLUSH IVP PRN ×3 (11:55→23:53)
[2017-04-03] MEDS: oxyCODONE-ACETAMINOPHEN 5-325 TAB PO PRN ×5 (03:28→22:01)
[2017-04-03] MEDS: KETOROLAC 15 MG/1 ML VIAL IVP SCH (05:31)
[2017-04-03] MEDS: NORMAL SALINE 10 ML SYRINGE FLUSH IVP PRN (05:32)
[2017-04-03 06:00] LABS: Hematocrit [HCT] 28.6 % (37.0-47.0); Hemoglobin [HGB] 9.3 g/dL (12.0-16.0); MEAN CORPUSCULAR HEMOGLOBIN 28.4 PG (27-31); MEAN CORPUSCULAR HGB CONC 32.5 g/dL (33-37); MEAN CORPUSCULAR VOLUME 87.5 FL (81-99); MEAN PLATELET VOLUME 8.8 FL (7.4-12.2); RED BLOOD COUNT 3.27 10^6/uL (4.20-5.40)
[2017-04-03] MEDS: Prenatal Multivitamin Tab 1 TAB TAB PO SCH (08:36)
[2017-04-03] MEDS: Senna/Docusate Tab 1 TAB TAB PO SCH ×2 (08:36→20:56)
[2017-04-03] MEDS: FERROUS GLUCONATE 324 MG TABLET PO SCH ×3 (08:50→20:56)
[2017-04-03] MEDS: IBUPROFEN 800 MG TABLET PO PRN ×2 (11:36→20:56)
[2017-04-04] MEDS: oxyCODONE-ACETAMINOPHEN 5-325 TAB PO PRN ×3 (03:47→15:04)
[2017-04-04] MEDS: IBUPROFEN 800 MG TABLET PO PRN ×2 (03:48→12:16)
[2017-04-04] MEDS: Prenatal Multivitamin Tab 1 TAB TAB PO SCH (09:07)
[2017-04-04] MEDS: Senna/Docusate Tab 1 TAB TAB PO SCH (09:07)
[2017-04-04] MEDS: FERROUS GLUCONATE 324 MG TABLET PO SCH ×2 (09:08→15:04)
[2017-04-04 10:10] VITALS: RESP 18
[2017-04-04 12:17] VITALS: TEMP 97.9
[2017-04-04 12:25] VITALS: BP 143/95; O2SAT 98
--- NOTE | 2017-04-23 09:27 | OB.PROGRES ---
Subjective Post Op Day: 1 Pain Management: PO Mendoza Catheter: No Flatus: Yes Diet: Regular Feeding Method: / Bottle Ambulating: Yes Concerns / Additional Information: Mild lochia. Pain well controlled on percocet and toradol. No complaints. Objective - General General Appearance: POSITIVE: No Acute Distress, Cooperative - Cardiovacular Cardiovascular Exam: POSITIVE: RRR, No Murmur Edema: +1 Pedal Edema Extremities: Negative Cecilia's - Bilaterally - Respiratory Respiratory Exam: POSITIVE: Clear to Auscultation - Bilaterally, Breathing Non Labored - Abdomen Bowel Sounds: Hypoactive Abdominal Wound Assessment: Silverlone Dressing Assesstment / Plan (1) History of primary section Status: Acute (2) Breech presentation of fetus Status: Acute Assessment / Plan: -routine cares. -rubella immune. -rh positive. -breast feeding with some formula supplementation. -likely d/c home in 1-2 days.
--- NOTE | 2017-04-23 09:32 | DCSUMMARY ---
Hospitalization Summary Admit Date: 04/02/17 Discharge Date: 04/04/17 Primary Diagnosis:: Breech presentation w/ Spontaneous Rupture of Membranes Secondary Diagnosis:: Active labor GBS positive Primary Surgery and Date: Primary section Delivery Type: Hospital Course: Pt was admitted in active labor with continued breech presentation. She was taken for primary section. For details of this operation, please see operative note elsewhere in the chart. / Postop Complications: Pt had a normal postoperative course with no complications. Complications: Baby baldev Gordon did have some mild hypoglycemia in the first 24 hours after , but formula supplementation as initiated and this maintained her sugars nicely. Her temps remained stable. Due to her size, she did take a longer to feed and was thus syringe fed after most of her breast feeding sessions. By the time of discharge, mom had a good routine down for feeding the . Exam - Vitals Vital Signs: Vital Signs Temperature 97.9 F Temperature Source Oral Pulse Rate [Apical] 75 Pulse Rate [Pulse Oximeter] 68 Pulse Rate 78 Respiratory Rate 18 Blood Pressure [Left Arm] 143/95 Blood Pressure [Right Arm] 109/52 Blood Pressure 131/70 Pulse Ox 98 Oxygen Flow Rate RA Oxygen Flow Rate [1 of 1] 10 Oxygen Delivery Method Room Air Height 5 ft 4 in Weight 223 lb 12.8 oz - General General Appearance: No Acute Distress, Cooperative - Head Head Exam: Normal Inspection - Neck Neck Exam: Normal Inspection - Respiratory Respiratory Exam: POSITIVE: Clear to Auscultation - Bilaterally, Breathing Non Labored - Cardiovascular Cardiovascular Exam: POSITIVE: RRR, No Murmur - GI/Abdominal GI/Abdominal Exam: POSITIVE: Normal Bowel Sounds, Non Tender, Non Distended, Soft - Extremities Extremities Exam: POSITIVE: Negative Cecilia's sign, +1 Edema - Neurological Neurological Exam: POSITIVE: Alert, Oriented x 3 - Psychiatric Psychiatric Exam: POSITIVE: Normal Affect, Normal Mood - Integumentary Integumentary Exam: POSITIVE: Normal Color, Warm, Dry Patient Problems - Patient Problem List (1) History of primary section Status: Acute Code(s): Z98.891 - History of uterine scar from previous surgery Category: Medical (2) Breech presentation of fetus Status: Acute Code(s): O32.1XX0 - Maternal care for breech presentation, not applicable or unspecified Category: Medical
== END 2017-04-04 16:50 | disposition home or self-care (01) | DRG 766 ==
LOC: OBOP 02:25 → OBIP 03:00
PROVIDERS: ADMIT Student in an Organized Health Care Education/Training Program; ATTEND Family Medicine